=== PATIENT | female | born 1975 | race Caucasian/White ===

== ENCOUNTER 2016-12-03 10:56 | Outpatient (CLI) | payer OTHER ==
[2016-12-03 13:50] LABS: #Basophils 0.1 thou/uL (0.0-0.2); #Eosinphils 0.1 thou/uL (0.0-0.7); #Lymphocytes 2.5 thou/uL (1.20-3.40); #Monocytes 0.9 thou/uL (0.11-0.59); %Basophils 0.7 % (0.0-1.0); %Eosinophils 0.6 % (0.0-10.0); %Lymphocytes 20.2 % (21.0-51.0); %Monocytes 7.3 % (0.0-10.0); %Neutrophils 71.2 % (42.0-75.0); Hemoglobin 14.3 g/dL (12.0-16.0); Mean Corpuscular HGB CONC 30.1 g/dL (32.0-36.0); Mean Corpuscular Hemoglobin 24.3 pg (27.0-31.0); Mean Corpuscular Volume 80.8 fl (81.0-99.0); Mean Platelet Volume 6.8 fL (7.4-10.4); Platelet Count 341 thou/uL (130-400); RBC Distribution Width 16.2 % (11.5-14.5); Red Blood Cell (RBC) Count 5.86 mill/uL (4.20-5.40); White Blood Cell (WBC) Count 12.6 thou/uL (4.8-10.8)
[2016-12-03 13:52] LABS: Anisocytosis SLIGHT = 6-15 cells (100X) (0-5/hpf); MDiff Complete? YES; PLT Morphology Comment Appears Adequate
[2016-12-03 14:44] LABS: Anion Gap 18 mmol/L (10-20); BUN (Urea Nitrogen) 22 mg/dL (7.0-18.7); Calc. Creatinine Clearance 0 mL/min (70-130); Calcium 8.7 mg/dL (7.8-10.44); Carbon Dioxide 23 mmol/L (22-29); Chloride 125 mmol/L (98-107); Estimated GFR-MDRD 66; Glucose 113 mg/dL (70-105); Potassium 3.6 mmol/L (3.5-5.1); Sodium 162 mmol/L (136-145)
[2016-12-03 21:48] LABS: Bilirubin Negative (Negative); Blood, Urine Trace (Negative); Glucose, Urine (Dipstick) Negative (Negative); Leukocyte Moderate (Negative); Nitrite Negative (Negative); Protein, Urine (Dipstick) 30 mg/dL (Neg-Trace); Specific Gravity, Urine 1.025 (1.005-1.030); Urobilinogen 0.2 mg/dL (0.2-1.0); pH, Urine 6.5 (5.0-9.0)
[2016-12-03 21:55] LABS: Clarity Cloudy (Clear); RBC/HPF 0-3 HPF (0-3); Squamous Epithelial 21-50 HPF (0-3)
[2016-12-03 21:56] LABS: Bacteria/HPF 4+ HPF (None Seen)
== END 2016-12-03 10:57 | disposition home or self-care (01) ==
LOC: NAV LABSP 10:56
PROVIDERS: ATTEND Internal Medicine
DX: E11.9 Type 2 diabetes mellitus without complications (principal)
CPT/HCPCS: 36415; 80048; 81003; 81015; 85025; 87077; 87086

== ENCOUNTER 2016-12-04 07:22 | Outpatient (CLI) | payer OTHER ==
[2016-12-04 08:03] LABS: Anion Gap 14 mmol/L (10-20); BUN (Urea Nitrogen) 17 mg/dL (7.0-18.7); Calc. Creatinine Clearance 0 mL/min (70-130); Calcium 8.6 mg/dL (7.8-10.44); Carbon Dioxide 25 mmol/L (22-29); Chloride 112 mmol/L (98-107); Estimated GFR-MDRD 87; Glucose 77 mg/dL (70-105); Potassium 3.5 mmol/L (3.5-5.1); Sodium 147 mmol/L (136-145)
== END 2016-12-04 07:23 | disposition home or self-care (01) ==
LOC: NAV LABSP 07:22
PROVIDERS: ATTEND Internal Medicine
DX: E11.9 Type 2 diabetes mellitus without complications (principal)
CPT/HCPCS: 36415; 80048

== ENCOUNTER 2016-12-09 08:12 | Outpatient (CLI) | payer OTHER ==
[2016-12-09 09:44] LABS: Anion Gap 13 mmol/L (10-20); BUN (Urea Nitrogen) 10 mg/dL (7.0-18.7); Calc. Creatinine Clearance 0 mL/min (70-130); Calcium 8.5 mg/dL (7.8-10.44); Carbon Dioxide 20 mmol/L (22-29); Chloride 110 mmol/L (98-107); Estimated GFR-MDRD Greater than 90; Glucose 71 mg/dL (70-105); Sodium 139 mmol/L (136-145)
== END 2016-12-09 08:13 | disposition home or self-care (01) ==
LOC: NAV LABSP 08:12
PROVIDERS: ATTEND Internal Medicine
DX: E11.618 Type 2 diabetes mellitus with other diabetic arthropathy (principal); E03.9 Hypothyroidism, unspecified; I10 Essential (primary) hypertension; K21.9 Gastro-esophageal reflux disease without esophagitis
CPT/HCPCS: 36415; 80048

== ENCOUNTER 2017-01-10 15:19 | Outpatient (CLI) | payer OTHER ==
[2017-01-10 21:44] LABS: Bilirubin Negative (Negative); Blood, Urine Negative (Negative); Clarity Clear (Clear); Glucose, Urine (Dipstick) Negative (Negative); Leukocyte Negative (Negative); Nitrite Negative (Negative); Protein, Urine (Dipstick) Negative (Neg-Trace); Urobilinogen 0.2 mg/dL (0.2-1.0)
[2017-01-10 22:17] LABS: Bacteria/HPF None Seen HPF (None Seen); RBC/HPF None Seen HPF (0-3); Squamous Epithelial None Seen HPF (0-3); WBC/HPF None Seen HPF (0-3)
== END 2017-01-10 15:20 | disposition home or self-care (01) ==
LOC: NAV LABSP 15:19
PROVIDERS: ATTEND Internal Medicine
DX: E03.9 Hypothyroidism, unspecified (principal); R19.7 Diarrhea, unspecified; E11.9 Type 2 diabetes mellitus without complications; R82.90 Unspecified abnormal findings in urine; G47.00 Insomnia, unspecified
CPT/HCPCS: 81001; 87086

== ENCOUNTER 2017-01-30 07:14 | Outpatient (CLI) | payer OTHER ==
[2017-01-30 07:34] LABS: Anion Gap 14 mmol/L (10-20); Calcium 8.4 mg/dL (7.8-10.44); Carbon Dioxide 21 mmol/L (22-29); Chloride 106 mmol/L (98-107); Potassium 3.9 mmol/L (3.5-5.1); Sodium 137 mmol/L (136-145)
[2017-01-30 08:00] LABS: BUN (Urea Nitrogen) 11 mg/dL (7.0-18.7); Calc. Creatinine Clearance 0 mL/min (70-130); Estimated GFR-MDRD Greater than 90; Glucose 83 mg/dL (70-105)
== END 2017-01-30 07:15 | disposition home or self-care (01) ==
LOC: NAV LABSP 07:14
PROVIDERS: ATTEND Internal Medicine
DX: E03.9 Hypothyroidism, unspecified (principal)
CPT/HCPCS: 36415; 80048

== ENCOUNTER 2017-02-07 09:22 | Outpatient (CLI) | payer OTHER ==
[2017-02-07 11:51] LABS: ALT (SGPT) 12 U/L (8-55); AST (SGOT) 15 U/L (5-34); Albumin 3.7 g/dL (3.5-5.0); Alkaline Phosphatase 70 U/L (40-150); Anion Gap 14 mmol/L (10-20); BUN (Urea Nitrogen) 12 mg/dL (7.0-18.7); Bilirubin, Total 0.3 mg/dL (0.2-1.2); Calc. Creatinine Clearance 0 mL/min (70-130); Calcium 8.7 mg/dL (7.8-10.44); Carbon Dioxide 23 mmol/L (22-29); Chloride 109 mmol/L (98-107); Estimated GFR-MDRD 86; Globulin 2.9 g/dL (2.4-3.5); Glucose 92 mg/dL (70-105); Potassium 3.9 mmol/L (3.5-5.1); Protein, Total 6.6 g/dL (6.0-8.3); Sodium 142 mmol/L (136-145)
[2017-02-07 14:36] LABS: #Basophils 0.1 thou/uL (0.0-0.2); #Eosinphils 0.1 thou/uL (0.0-0.7); #Lymphocytes 2.8 thou/uL (1.20-3.40); #Monocytes 0.3 thou/uL (0.11-0.59); #Neutrophils 2.7 thou/uL (1.40-6.50); %Basophils 1.2 % (0.0-1.0); %Eosinophils 0.9 % (0.0-10.0); %Lymphocytes 47.3 % (21.0-51.0); %Monocytes 4.7 % (0.0-10.0); Anisocytosis SLIGHT = 6-15 cells (100X) (0-5/hpf); Hemoglobin 11.7 g/dL (12.0-16.0); MDiff Complete? YES; Mean Corpuscular HGB CONC 31.1 g/dL (32.0-36.0); Mean Corpuscular Hemoglobin 24.4 pg (27.0-31.0); Mean Corpuscular Volume 78.4 fl (81.0-99.0); Mean Platelet Volume 6.1 fL (7.4-10.4); Microcytosis SLIGHT = 6-15 cells (100X) (0-5/hpf); PLT Morphology Comment Appears Adequate; Platelet Count 253 thou/uL (130-400); RBC Distribution Width 14.5 % (11.5-14.5); White Blood Cell (WBC) Count 5.9 thou/uL (4.8-10.8)
== END 2017-02-07 09:23 | disposition home or self-care (01) ==
LOC: NAV LABSP 09:22
PROVIDERS: ATTEND Internal Medicine
DX: E03.9 Hypothyroidism, unspecified (principal); E11.9 Type 2 diabetes mellitus without complications; R19.7 Diarrhea, unspecified
CPT/HCPCS: 36415; 80053; 84443; 85025

== ENCOUNTER 2017-03-14 07:32 | Outpatient (CLI) | payer OTHER ==
[2017-03-14 08:31] LABS: Anion Gap 13 mmol/L (10-20); BUN (Urea Nitrogen) 12 mg/dL (7.0-18.7); Calc. Creatinine Clearance 0 mL/min (70-130); Calcium 8.6 mg/dL (7.8-10.44); Carbon Dioxide 23 mmol/L (22-29); Chloride 106 mmol/L (98-107); Estimated GFR-MDRD Greater than 90; Glucose 73 mg/dL (70-105); Potassium 4.2 mmol/L (3.5-5.1); Sodium 138 mmol/L (136-145)
== END 2017-03-14 07:33 | disposition home or self-care (01) ==
LOC: NAV LABSP 07:32
PROVIDERS: ATTEND Internal Medicine
DX: E03.9 Hypothyroidism, unspecified (principal)
CPT/HCPCS: 36415; 80048

== ENCOUNTER 2017-04-09 07:07 | Outpatient (CLI) | payer OTHER ==
[2017-04-09 08:57] LABS: Anion Gap 12 mmol/L (10-20); BUN (Urea Nitrogen) 12 mg/dL (7.0-18.7); Calc. Creatinine Clearance 0 mL/min (70-130); Calcium 8.7 mg/dL (7.8-10.44); Carbon Dioxide 24 mmol/L (22-29); Chloride 102 mmol/L (98-107); Estimated GFR-MDRD Greater than 90; Glucose 74 mg/dL (70-105); Potassium 4.1 mmol/L (3.5-5.1); Sodium 134 mmol/L (136-145)
== END 2017-04-09 07:08 | disposition home or self-care (01) ==
LOC: NAV LABSP 07:07
PROVIDERS: ATTEND Internal Medicine
DX: E03.9 Hypothyroidism, unspecified (principal)
CPT/HCPCS: 36415; 80048

== ENCOUNTER 2017-05-26 07:27 | Outpatient (CLI) | payer OTHER ==
[2017-05-26 08:29] LABS: Anion Gap 11 mmol/L (10-20); BUN (Urea Nitrogen) 9 mg/dL (7.0-18.7); Calc. Creatinine Clearance 0 mL/min (70-130); Calcium 8.7 mg/dL (7.8-10.44); Carbon Dioxide 23 mmol/L (22-29); Chloride 101 mmol/L (98-107); Estimated GFR-MDRD Greater than 90; Glucose 75 mg/dL (70-105); Potassium 3.9 mmol/L (3.5-5.1); Sodium 131 mmol/L (136-145)
== END 2017-05-26 07:28 | disposition home or self-care (01) ==
LOC: NAV LABSP 07:27
PROVIDERS: ATTEND Internal Medicine
DX: E03.9 Hypothyroidism, unspecified (principal)
CPT/HCPCS: 36415; 80048

== ENCOUNTER → 2017-07-31 | Emergency (ER) | payer OTHER ==
[~2017-07-31] MED LIST: Diazepam 10 MG/2 ML SYRINGE ONE; Sodium Chloride 0.9% 1,000 ML ONE
[2017-07-31 19:23] LABS: #Basophils 0.1 thou/uL (0.0-0.2); #Lymphocytes 0.9 thou/uL (1.20-3.40); #Monocytes 0.3 thou/uL (0.11-0.59); #Neutrophils 5.8 thou/uL (1.40-6.50); %Basophils 1.5 % (0.0-1.0); %Eosinophils 0.5 % (0.0-10.0); %Lymphocytes 12.4 % (21.0-51.0); %Monocytes 4.1 % (0.0-10.0); %Neutrophils 81.5 % (42.0-75.0); Hemoglobin 11.9 g/dL (12.0-16.0); Mean Corpuscular HGB CONC 30.6 g/dL (32.0-36.0); Mean Corpuscular Hemoglobin 24.5 pg (27.0-31.0); Mean Corpuscular Volume 80.1 fl (81.0-99.0); Mean Platelet Volume 7.1 fL (7.4-10.4); Platelet Count 316 thou/uL (130-400); RBC Distribution Width 12.8 % (11.5-14.5); Red Blood Cell (RBC) Count 4.85 mill/uL (4.20-5.40); White Blood Cell (WBC) Count 7.1 thou/uL (4.8-10.8)
[2017-07-31 19:28] LABS: ALT (SGPT) 18 U/L (8-55); AST (SGOT) 22 U/L (5-34); Albumin 3.6 g/dL (3.5-5.0); Alkaline Phosphatase 111 U/L (40-150); Anion Gap 15 mmol/L (10-20); BUN (Urea Nitrogen) 8 mg/dL (7.0-18.7); Bilirubin, Total 0.6 mg/dL (0.2-1.2); CK (CPK) 170 U/L (29-168); Calc. Creatinine Clearance 0 mL/min (70-130); Calcium 8.3 mg/dL (7.8-10.44); Carbon Dioxide 18 mmol/L (22-29); Chloride 98 mmol/L (98-107); Estimated GFR-MDRD Greater than 90; Glucose 103 mg/dL (70-105); Potassium 3.3 mmol/L (3.5-5.1); Protein, Total 6.6 g/dL (6.0-8.3); Sodium 128 mmol/L (136-145)
[2017-07-31 19:30] LABS: CKMB 3.6 ng/mL (0-6.6); Troponin I Less than 0.010 ng/mL (< 0.028)
--- NOTE | 2017-07-31 19:53 | RAD ---
RIGHT HIP TWO VIEWS: History: Fall, right hip injury. FINDINGS: There is joint space narrowing and osteophytosis. Femoral head contour is maintained. No acute fractu re or dislocation are apparent. IMPRESSION: Mild osteoarthritic changes right hip. POS: VIVIANAH
--- NOTE | 2017-07-31 19:57 | RAD ---
LEFT HIP TWO VIEWS: History: Fall, left hip injury. FINDINGS: There is joint space narrowing, osteophytosis, and subchondral sclerosis. Patient body habitus severe ly limits detail. No displaced fractures are apparent. IMPRESSION: Prominent osteoarthritic changes left foot. POS: MIRELLA
--- NOTE | 2017-07-31 19:58 | RAD ---
CHEST ONE VIEW: History: Fall, chest pain. FINDINGS: Cardiac silhouette is magnified and enlarged. Pulmonary vasculature is engorged. No lobar consolidati on or pneumothorax are apparent. IMPRESSION: Cardiomegaly with pulmonary vascular congestion. Clinical correlation regarding other signs and sympt oms of CSF is required. POS: VIVIANAH
--- NOTE | 2017-07-31 20:00 | RAD ---
LEFT KNEE FOUR VIEWS: History: Fall, left knee injury. FINDINGS: There is narrowing of the joint spaces and osteophytosis. No displaced fractures or fluid distention of the joint capsule. Overlying board artifact obscures detail on the lateral view. IMPRESSION: Osteoarthritis left knee. No acute osseous abnormalities are demonstrated. POS: VIVIANA
[2017-07-31 20:26] LABS: Bilirubin Negative (Negative); Blood, Urine Negative (Negative); Clarity Clear (Clear); Glucose, Urine (Dipstick) Negative (Negative); Leukocyte Negative (Negative); Nitrite Negative (Negative); Protein, Urine (Dipstick) Negative (Neg-Trace); Urobilinogen 0.2 mg/dL (0.2-1.0)
== END ==
LOC: NAV ERS 17:53
DX: S80.12XA Contusion of left lower leg, initial encounter (principal); E87.1 Hypo-osmolality and hyponatremia; F41.9 Anxiety disorder, unspecified; Z79.891 Long term (current) use of opiate analgesic; Z79.899 Other long term (current) drug therapy; Z79.1 Long term (current) use of non-steroidal anti-inflammatories (NSAID); W17.89XA Other fall from one level to another, initial encounter
CPT/HCPCS: 51702; 71010; 80053; 81003; 82553; 83605; 84484; 85025; 85379; 87086; 96361; 96374; J3360; J7050

== ENCOUNTER 2018-05-23 16:21 | Emergency (ER) | payer OTHER ==
[2018-05-23 16:53] LABS: Bilirubin Negative (Negative); Blood, Urine Large (Negative); Glucose, Urine (Dipstick) Negative (Negative); Leukocyte Negative (Negative); Nitrite Negative (Negative); Protein, Urine (Dipstick) Negative (Neg-Trace); Urobilinogen 0.2 mg/dL (0.2-1.0)
[2018-05-23] MEDS ORDERED: Lidocaine 1% 20 ML MDV ONE (16:57)
[2018-05-23 17:10] LABS: Clarity SL HAZY (Clear)
[2018-05-23 17:13] LABS: Specific Gravity, Urine 1.021 (1.002-1.036); WBC/HPF 0-3 HPF (0-3)
[2018-05-23] MEDS ORDERED: Adacel (T-DAP) 0.5 ML VIAL ONE (17:33)
--- NOTE | 2018-05-23 18:01 | RAD ---
NASAL BONE THREE VIEW 05/23/18 HISTORY: Fall. COMPARISON: None. FINDINGS: No displaced left sided nasal bone fracture. Craniotomy changes are noted. IMPRESSION: No displaced nasal bone fracture. POS: MIRELLA
== END 2018-05-23 19:45 ==
LOC: NAV ERS 16:21
DX: S01.21XA Laceration without foreign body of nose, initial encounter (principal); M19.90 Unspecified osteoarthritis, unspecified site; E23.2 Diabetes insipidus; Z79.899 Other long term (current) drug therapy; Z79.1 Long term (current) use of non-steroidal anti-inflammatories (NSAID); Z79.891 Long term (current) use of opiate analgesic; W18.30XA Fall on same level, unspecified, initial encounter
CPT/HCPCS: 12011; 70160; 81003; 81015; 90471; 90715; J2001

== ENCOUNTER 2018-12-13 11:39 | Emergency (ER) | payer OTHER ==
[2018-12-13] MEDS ORDERED: Sodium Chloride 0.9% 2,000 ML ONE (12:08)
[2018-12-13] MEDS ORDERED: Cefepime 2 GM VIAL ONE (12:19)
[2018-12-13] MEDS ORDERED: Acetaminophen 325 MG TAB ONE (12:19)
[2018-12-13] MEDS ORDERED: Acetaminophen 500 MG TAB ONE (12:28)
[2018-12-13 12:34] LABS: #Basophils 0.2 thou/uL (0.0-0.2); #Lymphocytes 1.9 thou/uL (1.20-3.40); #Monocytes 1.1 thou/uL (0.11-0.59); #Neutrophils 10.4 thou/uL (1.40-6.50); %Basophils 1.2 % (0.0-1.0); %Lymphocytes 13.9 % (21.0-51.0); %Monocytes 7.8 % (0.0-10.0); %Neutrophils 77.1 % (42.0-75.0); Hemoglobin 13.3 g/dL (12.0-16.0); Mean Corpuscular Hemoglobin 22.5 pg (27.0-31.0); Mean Platelet Volume 7.9 fL (7.4-10.4); Platelet Count 328 thou/uL (130-400); RBC Distribution Width 14.7 % (11.5-14.5); White Blood Cell (WBC) Count 13.5 thou/uL (4.8-10.8)
[2018-12-13 12:35] LABS: ALT (SGPT) 44 U/L (8-55); AST (SGOT) 34 U/L (5-34); Albumin 4.2 g/dL (3.5-5.0); Alkaline Phosphatase 88 U/L (40-150); Anion Gap 19 mmol/L (10-20); BUN (Urea Nitrogen) 11 mg/dL (7.0-18.7); Bilirubin, Total 1.1 mg/dL (0.2-1.2); Calc. Creatinine Clearance 0 mL/min (70-130); Calcium 9.7 mg/dL (7.8-10.44); Carbon Dioxide 21 mmol/L (22-29); Chloride 103 mmol/L (98-107); Estimated GFR-MDRD 56; Globulin 4.1 g/dL (2.4-3.5); Glucose 116 mg/dL (70-105); Protein, Total 8.3 g/dL (6.0-8.3); Sodium 140 mmol/L (136-145)
--- NOTE | 2018-12-13 12:39 | RAD ---
FPortable chest radiograph: 12/13/2018 COMPARISON: 07/31/2017 HISTORY:Fever, cough, altered mental status FINDINGS: Heart and mediastinal contours unremarkable. The lungs appear clear. Osseous structures appear stable. IMPRESSION: No acute findings.
[2018-12-13 12:41] LABS: MDiff Complete? YES; Microcytosis SLIGHT = 6-15 cells (100X) (0-5/hpf); Platelet Morphology Comment Appears Adequate
[2018-12-13 13:04] LABS: Bilirubin Negative (Negative); Blood, Urine Small (Negative); Clarity Clear (Clear); Glucose, Urine (Dipstick) Negative (Negative); Leukocyte Large (Negative); Nitrite Negative (Negative); Protein, Urine (Dipstick) Negative (Neg-Trace); Specific Gravity, Urine Less/Equal 1.005 (1.005-1.030); Urobilinogen 0.2 mg/dL (0.2-1.0)
[2018-12-13 13:21] LABS: Bacteria/HPF 2+ HPF (None Seen); RBC/HPF 0-3 HPF (0-3); Squamous Epithelial 0-3 HPF (0-3)
[2018-12-13] MEDS ORDERED: Ibuprofen 800 MG TAB ONE (13:34)
== END 2018-12-13 14:12 | disposition short-term general hospital (02) ==
LOC: NAV ERS 11:39
DX: A41.9 Sepsis, unspecified organism (principal); N39.0 Urinary tract infection, site not specified; M10.9 Gout, unspecified; E11.9 Type 2 diabetes mellitus without complications; Z79.899 Other long term (current) drug therapy
CPT/HCPCS: 36415; 51701; 71045; 80053; 81003; 81015; 83605; 84484; 85025; 87040; 87077; 87086; 87149; 87186; 93005; 96360; 96361; 96374; A4353; J0692; J7050